=== PATIENT | female | born 1985 | race Caucasian/White ===

== ENCOUNTER 2016-08-27 05:41 | Day surgery (SDC) | payer BC ==
--- NOTE | ~2016-08-27 | OP ---
Record Of Operation [facility] [address] [place]. [address] NAME: MALINI SANCHEZ : 87 STATUS : [facility]#: [id number] AGE: 31 ADM/REG DATE : 08/27/16 MR#: [id number] REPORT SERV DATE: 08/27/16 DICTATED BY: AMAYA BEST DATE: 08/27/16 REPORT STATUS : Draft TRANSCRIBED BY: MODL DATE: 08/27/16 DATE OF PROCEDURE: 08/27/2016 PREOPERATIVE DIAGNOSIS: Submental mass. POSTOPERATIVE DIAGNOSIS: Submental mass. PROCEDURE: Excisional biopsy of submental mass. ANESTHESIA: General with LMA was utilized. ESTIMATED BLOOD LOSS: 1 mL. COMPLICATIONS: None. FINDINGS: 2 cm cystic mass possibly dermoid versus epidermoid cyst. INDICATIONS FOR PROCEDURE: A 31-year-old female, with a long history of submental mass that had been inflamed before with suspicion of sebaceous cyst. She has indications for the procedure as described. She was described the risks and benefits of the procedure. She voiced understanding, signed the consent. The consent was placed on the chart at the time of the operation. DESCRIPTION OF PROCEDURE: The patient was wheeled to the OR suite, and placed on the OR table in supine position. She was placed under general anesthesia with LMA without difficulty. A shoulder roll was placed. I would inject 0.5 mL of 1% lidocaine and 1:100,000 epinephrine and a small ellipse over a 2 cm subdermal mass midline neck above her hyoid. She was subsequently prepped and draped in standard fashion for excision of the mass, this was to be done using loupe magnification. Once I had scrubbed and gowned, we began the procedure, after a time out. I would use 15C blade to make an incision in the ellipse and then I carefully dissected with a combination of 0.5 pickups and the 15C blade around the mass staying on the capsule of the mass. It was well encapsulated about 2 cm in diameter and I went deep through this, there were no tracts heading down to the hyoid or deeply. It shelled out very nicely with 1 mL of blood loss. This was subsequently sent to the path for permanent. I would irrigate the wound, dried this out, and then closed in simple-layered fashion, 4-0 Vicryl was used deeply, simple interrupted suture, and then a running subcuticular 5-0 Monocryl was used to close the skin. The skin was cleaned and Mastisol and Steri-Strips were placed, as well as a 2 x 2, and Tegaderm. At this point, the procedure was complete. She was turned toward the care of anesthesiologist, subsequently awoken, and stably transferred to recovery area. No complications. The patient tolerated the procedure well. JUAN/MAZIN Record Of [address] [address] NAME: MALINI SANCHEZ : 87 STATUS : [facility] PAT#: [id number] AGE: 31 ADM/REG DATE : 08/27/16 MR#: [id number] REPORT SERV DATE: 08/27/16 DICTATED BY: AMAYA BEST DATE: 08/27/16 REPORT STATUS : Draft TRANSCRIBED BY: MAZIN DATE: 08/27/16 aya Best M.D. / [id number] CC: Amaya Best M.D.
[~2016-08-27 05:41] MED LIST: ASMANEX100 INH; IBU-200200 MG PO; NECON 1/35 PO; PROAIR HFA INH; [UNRECOGNIZED DRUG - OTHER] VA
== END 2016-08-27 09:44 | disposition home or self-care (01) ==
LOC: SDC 05:41
PROVIDERS: Otolaryngology
PROC: 0HB1XZZ Excision of Face Skin, External Approach (ICD-10-PCS; principal; 2016-08-27 06:45)
DX: L72.0 Epidermal cyst (principal); L72.3 Sebaceous cyst; J45.909 Unspecified asthma, uncomplicated; F41.9 Anxiety disorder, unspecified; Z79.899 Other long term (current) drug therapy; Z88.0 Allergy status to penicillin; Z88.1 Allergy status to other antibiotic agents; Z88.2 Allergy status to sulfonamides; Z88.5 Allergy status to narcotic agent; Z88.8 Allergy status to other drugs, medicaments and biological substances; Z86.718 Personal history of other venous thrombosis and embolism; Z98.890 Other specified postprocedural states; Z90.49 Acquired absence of other specified parts of digestive tract
CPT/HCPCS: 84703; 88305; A9270-GY; J0690; J2250; J2405; J3010